=== PATIENT | male | born 1960 | race Caucasian/White ===

== ENCOUNTER 2019-04-05 12:10 | Emergency (ER) | payer BC, SELFPAY ==
[2019-04-05 12:16] VITALS: BP 145/71; PULSE 53; RESP 16; TEMP 36.8; O2SAT 100
--- NOTE | 2019-04-05 12:21 | ED.SKABFB ---
HPI - Skin/Abscess/Foreign Bdy General Chief complaint: Skin/Abscess/Foreign Body Stated complaint: lump Time Seen by Provider: 04/05/19 12:22 Source: patient Mode of arrival: ambulatory Limitations: no limitations History of Present Illness HPI narrative: Matheus Shahid is a 58 yo male with no PMH with complaints of L lower abd protrusion that he noticed 2 days ago- no pain or tenderness Denies any heavy lifting-does row, walk on treadmill Related Data Home Medications Medication Instructions Recorded Confirmed No Home Medications 04/05/19 04/05/19 Allergies Allergy/AdvReac Type Severity Reaction Status Date / Time No Known Allergies Allergy Unverified 08/05/17 18:53 Review of Systems Review of Systems: Narrative: CONSTITUTIONAL: Denies fever, chills, sweats. EYES: Denies visual changes, redness, discharge. ENT: Denies rhinorrhea, congestion, sore throat, otalgia. CARDIOVASCULAR: Denies chest pain, palpitations, edema. RESPIRATORY: Denies dyspnea, wheezing, cough GASTROINTESTINAL: Denies abdominal pain, nausea, vomiting, diarrhea. Has small protrusion left inguinal area GENITOURINARY: Denies dysuria, hematuria, abnormal discharge SKIN: Denies rash or itching. MUSCULOSKELETAL: Denies acute back pain, joint pain, or myalgia. NEUROLOGIC: Denies numbness, or focal weakness. PSYCHIATRIC: Denies anxiety or depression. [facility] Family History Family History Other Family history of malignant neoplasm Social History Social History Smoking status: Never smoker Alcohol intake: current Comments At time of signature, I agree with nursing past medical, surgical, social and family history. There is no relevant family history pertinent to the presenting complaint. Exam Narrative: Exam Narrative: GENERAL: This is a well-nourished, well-developed patient, in no apparent distress. HEAD: normocephalic, atraumatic. EYES:Sclera clear/white. Vision is grossly intact. EARS: External ears normal, Hearing grossly intact. NOSE: External nose normal with no obvious nasal discharge, nares without redness, no rhinorrhea. THROAT: Mucous membranes moist, NECK: Neck supple, non-tender without lymphadenopathy, masses or thyromegaly. CARDIOVASCULAR: Regular rate and rhythm without murmurs, gallops, or rubs. RESPIRATORY: Clear to auscultation. Breath sounds equal bilaterally. No wheezes, rales, or rhonchi. GASTROINTESTINAL: Abdomen soft, non-tender, nondistended. Bowel sounds are active. Small 3x4 soft o in L upper inguinal area. No tenderness, SKIN: warm, intact with no suspicious lesions or rash, good texture and turgor. NEURO: awake, alert, and oriented to person, place and time. There were no obvious focal neurologic abnormalities. Steady gait EXTREMITIES: Normal range of motion. No edema. BACK: Nontender without deformity Course Course Emergency Course: Referral to primary care and general surgeons for assessment of left inguinal hernia Vital Signs Vital signs: Vital Signs Temperature 98.2 F 04/05/19 12:16 Pulse Rate 53 L 04/05/19 12:16 Respiratory Rate 16 04/05/19 12:16 Blood Pressure 145/71 H 04/05/19 12:16 Pulse Oximetry 100 04/05/19 12:16 Temperature 98.2 F 04/05/19 12:16 Pulse Rate 53 L 04/05/19 12:16 Respiratory Rate 16 04/05/19 12:16 Blood Pressure 145/71 H 04/05/19 12:16 Pulse Oximetry 100 04/05/19 12:16 MDM - Skin/Abscess/Foreign Bdy Differential Diagnosis Differential diagnosis: Likely other (Inguinal hernia versus mass ) Discharge Plan Discharge Clinical Impression: Hernia, inguinal, left Patient Disposition: Home, Self-Care Condition: Stable Instructions: Antibiotic Form, Inguinal Hernia (ED) Prescriptions: No Action No Home Medications RF: 0 Follow-up/Referrals: UNKNOWN,DOCTOR [Primary Care Provider] - Time of Dis
== END 2019-04-05 12:42 | disposition home or self-care (01) ==
PROVIDERS: Emergency Provider Nurse Practitioner
DX: K40.90 Unilateral inguinal hernia, without obstruction or gangrene, not specified as recurrent (principal)
CPT/HCPCS: 99211; G0463

== ENCOUNTER 2019-04-06 08:52 | Inpatient (IN) | payer BC, SELFPAY ==
[2019-04-06] VITALS (12 sets, daily range): BP systolic 136–193; BP diastolic 20–92; PULSE 51–92; RESP 12–21; TEMP 36.3–36.9; O2SAT 94–100; BMI 29.7
--- NOTE | 2019-04-06 | ECG_ITS ---
Measurements Intervals [place] Rate: 81 P: 3 IN: 140 QRS: -9 QRSD: 98 T: 21 QT: 370 QTc: 430 Interpretive Statements SINUS RHYTHM VENTRICULAR BIGEMINY INCOMPLETE RIGHT BUNDLE BRANCH BLOCK ABNORMAL ECG Electronically Signed On 04-08-2019 10:50:16 [employer] by Humberto Salazar D.O.
--- NOTE | ~2019-04-06 | MR_ITS ---
EXAMINATION: MR brain/brain stem wo/w con DATE: 04/06/2019 14:17 INDICATION: Stroke descending with right-sided facial droop and difficulty speaking TECHNIQUE: Magnetic resonance imaging (MRI) of the brain and brainstem was performed without and with 20 mL Multihance intravenous contrast. Sequences included sagittal and axial T1-weighted SE, axial d iffusion-weighted FS SE, axial T2*-weighted GRE, axial T2-weighted FLAIR, and axial T2-weighted FSE. Postcontrast axial and coronal T1-weighted SE was obtained. Apparent diffusion coefficient (ADC) maps were created. COMPARISON: Head CT and CT angiogram dated 04/06/2019 FINDINGS: There is a region of restricted diffusion with subtle associated increased T2 signal corresponding to the region of previously noted cytotoxic edema in the right frontal lobe involving the anterior/supe rior side of the sylvian fissure and insula consistent with acute infarct. There is an additional sma ll acute infarcts with restricted diffusion along a gyrus of the more anterior left frontal lobe whic h is essentially indiscernible on the CT images. No intracranial hemorrhage or abnormal intracranial mass lesion. There are no intraparenchymal signal abnormalities seen on the other pulse sequences. Th e ventricles are symmetric and normal in size. There are no abnormal extra-axial fluid collections. F low voids are seen in the mid to larger cerebral arteries on the T2-weighted sequences consistent wit h their expected patency. Visualized orbits and soft tissues are unremarkable. There are no areas of abnormal enhancement on the post contrast images. IMPRESSION: 1. Acute infarcts in the left frontal lobe the smaller lung and anterior gyrus and the larger involvi ng the anterosuperior aspect of the sylvian fissure and insula consistent with likely fibrotic emboli in the left middle cerebral artery vascular distribution. Reviewed, dictated and finalized at location A. E CUTTER IMPRESSION: 1. Acute infarcts in the left frontal lobe the smaller lung and anterior gyrus and the larger involving the anterosuperior aspect of the sylvian fissure and i nsula consistent with likely fibrotic emboli in the left middle cerebral artery vascular distribution.
--- NOTE | ~2019-04-06 | CT_ITS ---
EXAMINATION: CT brain wo con DATE: 04/06/2019 09:01 INDICATION: Possible stroke with slurred speech and right-sided facial droop TECHNIQUE: Computed tomography (CT) of the head was performed without intravenous contrast. Sagittal and coronal reconstructions were performed. The mA was adjusted according to patient size. Iterative reconstruction technique was employed. The dose-length product was 681.00 mGy-cm. COMPARISON: None FINDINGS: Region of cytotoxic edema with moderately decreased attenuation loss of garcia-white matter differentia tion in the left frontal lobe along the anterior sylvian fissure and anterior insula. No acute intrac ranial hemorrhage or abnormal extra axial fluid collection. Ventricles are normal and symmetric. No m ass/mass effect. The orbits, paranasal sinuses and mastoid air cells are normal. IMPRESSION: 1. Left frontal lobe acute infarct. No intracranial hemorrhage. Dr. Zhang discussed these findings with MIRELLA Hernandes at 9:03 AM. Reviewed, dictated and finalized at location A. RNAL CONTROL CONSULTANT IMPRESSION: 1. Left frontal lobe acute infarct. No intracranial hemorrhage. Dr. Zhang di scussed these findings with MIRELLA Hernandes at 9:03 AM.
--- NOTE | ~2019-04-06 | XR_ITS ---
EXAMINATION: XR chest 1V DATE: 04/06/2019 09:03 INDICATION: Weakness and memory loss TECHNIQUE: frontal view of the chest was obtained. COMPARISON: None FINDINGS: Small calcified nodule at the lateral left lower lung zone consistent with old granulomatous disease. No other airspace opacities, pulmonary edema, pleural effusion or pneumothorax. The cardiomediastina l silhouette is normal. Visualized bones and soft tissues are unremarkable. IMPRESSION: 1. No acute cardiopulmonary disease. Reviewed, dictated and finalized at location A. [place] ACCOUNT EXECUTIVE
--- NOTE | ~2019-04-06 | CT_ITS ---
EXAMINATION: CTA BRAIN/CAROTID DATE: 04/06/2019 09:45 INDICATION: Stroke with slurred speech and right-sided facial droop TECHNIQUE: Computed tomographic angiography (CTA) of the head and neck was performed with 100 mL Omni paque-350 intravenous contrast. Multiplanar reconstructions and maximum intensity projection 3D-recon structions of the carotid arteries and of the intracranial arteries were created by the technologist on a separate workstation. Precontrast CT of the head was also obtained. Automated exposure control and iterative reconstruction technique were employed.The dose-length product was 1190.05 mGy-cm. COMPARISON: Head CT dated 04/06/2019 FINDINGS: Carotid arteries: There is small amount of atherosclerotic plaque with 0% stenosis of the right carotid bulb relative t o normal distal artery lumen diameter (NASCET criteria). There is similar small amount of atheroscler otic plaque with 0% stenosis of the left carotid bulb relative to normal distal artery lumen diameter . Right vertebral artery is dominant. Cervical soft tissues are unremarkable. Respiratory motion at t he apices of the lungs which are otherwise clear. Moderate cervical spondylosis. Intracranial arteries There is no hemodynamically significant stenosis in the vertebral, basilar and internal carotid arter ies. Right vertebral artery is dominant. The basilar artery is relatively small throughout its course . Bilateral A1 and P1 segments are patent although the right P1 segment is also diminutive with major ity of flow appearing to arise from the right internal carotid artery via the right posterior commuti ng artery there also appears to be some contribution of flow to the left posterior cerebral artery vi a a smaller left posterior commuting artery. There is relative paucity of cortical enhancement and as sociated tiny cerebral vessels in the region of left frontal lobe infarct along the anterior margin o f the sylvian fissure however no definitive thrombosed vessel is identified to at least the third ord er branch of the left middle cerebral artery. Cerebral arterial arborization appears otherwise symmet tamika. No evident aneurysms or dissection. IMPRESSION: 1. 0% stenosis of the right carotid bulb relative to normal distal artery lumen diameter (NASCET crit eria). 2. 0% stenosis of the left carotid bulb relative to normal distal artery lumen diameter. 3. Decreased cortical enhancement and absence of associated tiny cerebral vessels in the region of th e left frontal lobe infarct along the anterior margin of the sylvian fissure but without a discrete t hrombosed vessel through at least the third order branch of the left middle cerebral artery. Reviewed, dictated and finalized at location A. SAGE INSTRUCTOR IMPRESSION: 1. 0% stenosis of the right carotid bulb relative to normal distal artery lumen diameter (NASCET criteria). 2. 0% stenosis of the left carotid bulb relative to normal distal artery lumen diameter. 3. Decreased cortical enhancement and absence of associated tiny cerebral vesse ls in the region of the left frontal lobe infarct along the anterior margin of the sylvian fissure but without a discrete thrombosed vessel through at least t he third order branch of the left middle cerebral artery.
--- NOTE | 2019-04-06 09:03 | ED.NEUROSD ---
HPI - Neuro Symptoms/Deficit General Chief Complaint: Suspected CVA Stated Complaint: code cva Time Seen by Provider: 04/06/19 08:55 Source: patient and RN notes reviewed Mode of arrival: EMS Limitations: no limitations History of Present Illness HPI Narrative: Pt is a 58 y/o male presenting to the ED via EMS c/o facial droop. Pt reports he woke up this morning not feeling right , stating he felt out of sorts and spilled water out of a cup. Pt states he was called by his son on FaceTime and his son noticed the pt experience a rt sided facial droop. Pt denies weakness, dizziness, CP, HAZEL, fever, or dysphagia. Pt states he felt fine yesterday, but notes he did go to an where he was diagnosed with a hernia. Pt also reports ataxia that states comes and goes. Onset (ago): unknown Location: right face (Droop) Associated symptoms: other (Ataxia) Related Data Home Medications Medication Instructions Recorded Confirmed No Home Medications 04/05/19 04/05/19 Allergies Allergy/AdvReac Type Severity Reaction Status Date / Time No Known Allergies Allergy Unverified 08/05/17 18:53 Review of Systems Review of Systems: All systems reviewed & are unremarkable except as noted in HPI and below Constitutional: Constitutional: Denies fever(s) ENT: Denies other (Dysphagia) Cardiovascular: Cardiovascular: Denies chest pain Neurologic: Denies dizziness, Denies headache(s), Denies weakness and Reports other (Rt sided facial droop; Ataxia) PMFSH Past Medical History Medical History Leg fracture Surgical History Surgical History H/O right knee surgery No significant past surgical history Family History Family History Other Family history of malignant neoplasm Social History Social History Smoking status: Never smoker Alcohol intake: current Drinks per week: 10 Substance use: never Gender identity (if verbalized by the patient): Male Spiritual care concerns: No Agree to blood products: Yes Exam Const: General: healthy appearing, no acute distress and alert Nutritional Appearance: well nourished HENMT: Mouth: Yes lip normal Eyes: Conjunctivae: conjunctivae normal Resp: Effort & Inspection: normal respiratory effort Auscultation: clear to auscultation bilaterally Cardio: Rate: regular rate Rhythm: regular rhythm Back/Spine/Pelvis: Other: Full ROM Skin: General skin exam: normal color Other: Warm; Dry Neuro: General: patient oriented x3 Cranial nerves: Yes Other cranial nerve findings present (Rt sided facial droop) Speech: Expressive aphasia present Extrem: General: full ROM Psych: Mental Status: mental status grossly normal Affect: normal affect Course Consultations Consultation #1: Discussed case with Hospitalist Dr. Bhandari. Accepted the pt for admission. Date: 04/06/19 Time: 10:42 Vital Signs Vital signs: Vital Signs Temperature 36.9 C 04/06/19 09:20 Pulse Rate 70 04/06/19 09:20 Respiratory Rate 18 04/06/19 09:20 Blood Pressure 193/70 H 04/06/19 09:20 Pulse Oximetry 100 04/06/19 09:20 Temperature 36.3 C L 04/06/19 14:00 Pulse Rate 53 L 04/06/19 14:00 Respiratory Rate 18 04/06/19 14:00 Blood Pressure 154/84 H 04/06/19 14:00 Pulse Oximetry 100 04/06/19 14:00 MDM - Neuro Symptoms/Deficit Differential Diagnosis Differential diagnosis: Likely subarachnoid hemorrhage, cerebrovascular accident and transient cerebral ischemia Medical Records Attestation: I reviewed the patient's medical records. Lab Data Attestation: I reviewed the patient's lab results. Result diagrams: 04/06/19 09:16 04/06/19 10:06 Labs: Lab Results 04/06/19 04/06/19 04/06/19 Range/Units 09:05 09:16 09:16 WBC 6.3 (4.5-10.0) K/mm3 RBC 4.79 (4.6-6.20) M
[2019-04-06 09:08] LABS: Glucose Point of Care 105 (65-105)
[2019-04-06] MEDS: ASPIRIN 81 MG CHEWABLE TABLET 324 MG PO (09:17)
[2019-04-06 09:23] LABS: Basophils Absolute Auto 0.1 K/mm3 (0.0-0.1); Basophils Percent Auto 1.1 % (0.2-1.2); Eosinophils Absolute Auto 0.3 K/mm3 (0-0.3); Eosinophils Percent Auto 4.4 % (0-4.4); Hematocrit 44.5 % (42.0-52.0); Hemoglobin 14.3 g/dL (14.0-18.0); Immature Granulocyte Absolute 0.01 K/mm3 (0.00-0.031); Immature Granulocyte Percent A 0.2 % (0-0.5); Lymphocytes Absolute Auto 1.57 K/mm3 (0.9-3.2); Lymphocytes Percent Auto 24.9 % (18.3-44.2); Mean Corpuscular HGB Conc 32.1 g/dl (32-36); Mean Corpuscular Hemoglobin 29.9 pg (26-34); Mean Corpuscular Volume 92.9 fl (80-100); Monocytes Absolute Auto 0.6 K/mm3 (0.1-0.6); Monocytes Percent Auto 10.1 % (2.6-8.5); Neutrophils Absolute Auto 3.7 K/mm3 (1.3-6.7); Neutrophils Percent Auto 59.3 % (45.5-73.1); Platelet Count Result 239 k/mm3 (150-375); Red Blood Count 4.79 M/mm3 (4.6-6.20); Red Cell Distribution Width 13.7 % (11.5-14.5); White Blood Count 6.3 K/mm3 (4.5-10.0)
--- NOTE | 2019-04-06 09:33 | PC.NURSE ---
PT TAKEN TO CT PER GANTRY RIGGER WITH MONITOR IN PLACE.
[2019-04-06 09:34] LABS: INR 0.9; Prothrombin Time 11.3 Seconds (11.1-14.7)
[2019-04-06 09:35] LABS: Partial Thromboplastin Time 23.7 SECONDS (22.3-36.8)
[2019-04-06 09:36] LABS: Blood Urea Nitrogen 35 mg/dL (8-26); Estimated Glomerular Filt Rate > 60
--- NOTE | 2019-04-06 09:43 | PC.NURSE ---
PT BACK FROM CT AT THIS TIME, PLACED ON MONITOR.
--- NOTE | 2019-04-06 10:04 | PC.NURSE ---
PT BLOODWORK UNRECEIVED BY LAB, CISCO LERMA AT BEDSIDE TO REDRAW AT THIS TIME.
[2019-04-06 10:22] LABS: Blood Urea Nitrogen 26 mg/dL (9-20); Calcium 9.3 mg/dL (8.4-10.2); Carbon Dioxide 23 mmol/L (22-30); Chloride 102 mmol/L (98-107); Estimated Glomerular Filt Rate > 60; Glucose 109 mg/dL (75-110); Potassium 4.2 mmol/L (3.4-5.0); Sodium 137 mmol/L (137-145)
[2019-04-06 10:34] LABS: Troponin I < 0.012 ng/mL (0.000-0.034)
--- NOTE | 2019-04-06 11:28 | PC.NURSE ---
Pt admitted from the ER,resting in bed without any complaints.Call light in reach.
--- NOTE | 2019-04-06 16:38 | PM.IMHP ---
H&P: HPI History of Present Illness Chief complaint: stroke Narrative: Matheus Shahid is a 58 year old male who came to the emergency room due to expressive aphasia. The patient stated that he woke up this morning and he did a few routine. He drink some water and fed the cats. He said he woke up later than usual and just felt kind of groggy but did not have any weakness anywhere. He had tried to talk because he was home alone. He did realize that he was unable to talk until his son called him. He picked up the phone and tried to answer it but could not talk. The patient did face time with his son who noticed the patient had right eye droop and right corner of his mouth drooping. The patient got another phone and dial 911 and the son explained what was going on to EMS. The patient was able to unlock the door and let EMS in. He is having some word searching now but can speak in full sentences at times. The patient's last known normal was last night before went to bed. He went to urgent care yesterday and was checked for left inguinal hernia. Neurology has been consulted. The patient was placed on an aspirin. Date of service is 04/06/2019 Review of Systems Review of Systems: Narrative: Patient has word searching and cannot always find the right word but performs hand motions and communicates otherwise. All systems reviewed & are unremarkable except as noted in HPI and below Constitutional: Constitutional: Reports as per HPI and Reports no additional constitutional complaints Comments: [place] tired today Eyes: Eyes: Reports as per HPI and Reports no additional eye complaints Comments: Drooping of right eye and the corner of right mouth ENT: Reports system reviewed and no additional complaints, except as documented and Reports Normal hearing present Cardiovascular: Cardiovascular: Reports no additional cardiovascular complaints Respiratory: Respiratory: Reports no additional respiratory complaints and Reports no additional respiratory complaints Gastrointestinal: Gastrointestinal: Reports as per HPI and Reports no additional gastrointestinal complaints Musculoskeletal: Musculoskeletal: Reports no additional musculoskeletal complaints Integumentary/Breasts: Skin/Breast: Reports system reviewed and no additional complaints, except as docu and Reports as per HPI Neurologic: Reports system reviewed and no additional complaints, except as documented, Reports as per HPI and Reports Normal hearing present Psychiatric: Psychiatric: Reports no additional psychiatric complaints and Reports as per HPI Endocrine: Endocrine: Reports no additional endocrine complaints Hematologic/Lymphatic: Hematologic/Lymphatic: Reports no additional hematologic/lymphatic complaints Allergic/Immunologic: Allergic/Immunologic: Reports no additional allergic/immunologic complaints PMFSH Past Medical History Medical History Leg fracture Surgical History Surgical History (Updated 04/06/19 @ 16:45 by Celia Soto NP) H/O right knee surgery Family History Family History (Updated 04/06/19 @ 16:48 by Celia Soto NP) Mother Cancer Father Motor vehicle accident Other Family history of malignant neoplasm Social History Social History (Updated 04/06/19 @ 16:50 by Celia Soto NP) Social History: The patient has 2 sons. His Miranda is his durable power commercial real estate attorney for [employer] knee which is to be a full code. 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 Nonsmoker and occasionally drinks a beer. Smoking status: Never smoker Alcohol intake: current Drinks per week: 10 Substance use: never Living arrangements: with family Occupation/Education: occupation Gender identity (if verbalized by the patient): Male Spiritual care concerns: No Agree to blood products: Yes Meds Home Medications and Allergies Home Medications Medication Instructions Record
--- NOTE | 2019-04-06 17:19 | ED.NEUROSD ---
HPI - Neuro Symptoms/Deficit General Chief Complaint: Suspected CVA Stated Complaint: code cva Time Seen by Provider: 04/06/19 08:55 Source: patient and RN notes reviewed Mode of arrival: EMS Limitations: no limitations History of Present Illness Location: right face (Droop) Related Data Home Medications Medication Instructions Recorded Confirmed No Home Medications 04/05/19 04/05/19 Allergies Allergy/AdvReac Type Severity Reaction Status Date / Time No Known Allergies Allergy Unverified 08/05/17 18:53 [facility] Past Medical History Medical History Leg fracture Surgical History Surgical History (Updated 04/06/19 @ 16:45 by Celia Soto NP) H/O right knee surgery Family History Family History (Updated 04/06/19 @ 16:48 by Celia Soto NP) Mother Cancer Father Motor vehicle accident Other Family history of malignant neoplasm Social History Social History (Updated 04/06/19 @ 16:50 by Celia Soto NP) Social History: The patient has 2 sons. His Miranda is his durable power deputy county attorney for healthcare knee which is to be a full code. 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 Nonsmoker and occasionally drinks a beer. Smoking status: Never smoker Alcohol intake: current Drinks per week: 10 Substance use: never Living arrangements: with family Occupation/Education: occupation Gender identity (if verbalized by the patient): Male Spiritual care concerns: No Agree to blood products: Yes Course Vital Signs Vital signs: Vital Signs Temperature 36.9 C 04/06/19 09:20 Pulse Rate 70 04/06/19 09:20 Respiratory Rate 18 04/06/19 09:20 Blood Pressure 193/70 H 04/06/19 09:20 Pulse Oximetry 100 04/06/19 09:20 Temperature 36.3 C L 04/06/19 14:00 Pulse Rate 53 L 04/06/19 14:00 Respiratory Rate 18 04/06/19 14:00 Blood Pressure 154/84 H 04/06/19 14:00 Pulse Oximetry 100 04/06/19 14:00 MDM - Neuro Symptoms/Deficit MDM Narrative Medical decision making narrative: He is outside of the window for TPA. Discussed case with Dr. Evangelista. Will admit for stroke work-up. Will allow permissive hypertension at this time. Differential Diagnosis Differential diagnosis: Likely subarachnoid hemorrhage, cerebrovascular accident and transient cerebral ischemia Medical Records Attestation: I reviewed the patient's medical records. Lab Data Attestation: I reviewed the patient's lab results. Result diagrams: 04/06/19 09:16 04/06/19 10:06 Labs: Lab Results 04/06/19 04/06/19 04/06/19 Range/Units 09:05 09:16 09:16 WBC 6.3 (4.5-10.0) K/mm3 RBC 4.79 (4.6-6.20) M/mm3 Hgb 14.3 (14.0-18.0) g/dL Hct 44.5 (42.0-52.0) % MCV 92.9 (80-100) fl MCH 29.9 (26-34) pg MCHC 32.1 (32-36) g/dl RDW 13.7 (11.5-14.5) % Plt Count 239 (150-375) k/mm3 MPV 11.0 H (7.4-10.4) fl Immature Gran % (Auto) 0.2 (0-0.5) % Neut % (Auto) 59.3 (45.5-73.1) % Lymph % (Auto) 24.9 (18.3-44.2) % [place] % (Auto) 10.1 H (2.6-8.5) % Eos % (Auto) 4.4 (0-4.4) % Baso % (Auto) 1.1 (0.2-1.2) % Lymph # (Auto) 1.57 (0.9-3.2) K/mm3 [place] # (Auto) 0.6 (0.1-0.6) K/mm3 Eos # (Auto) 0.3 (0-0.3) K/mm3 Baso # (Auto) 0.1 (0.0-0.1) K/mm3 Abs Immat Gran (auto) 0.01 (0.00-0.031) K/mm3 Absolute Neuts (auto) 3.7 (1.3-6.7) K/mm3 Absolute Nucleated RBC 0.0 (0.0-0.012) K/mm3 Nucleated RBC % 0.0 (0.0-0.2) % PT 11.3 (11.1-14.7) Seconds INR 0.9 APTT 23.7 (22.3-36.8) SECONDS Sodium (137-145) mmol/L Potassium (3.4-5.0) mmol/L Chloride (98-107) mmol/L Carbon Dioxide (22-30) mmol/L BUN (8-26) mg/dL Creatinine (0.8-1.5) mg/dL Estim Creat Clear Calc Estimated GFR (59 - ) Glucose (75-110) mg/dL POC Capillary Glucose 105 (65-105) mg/dl Calcium (8.4-10.2) mg/
--- NOTE | 2019-04-06 18:01 | WPDNEURCNPN ---
Assessment and Plan Assessment and plan (1) Acute ischemic stroke: Code(s): I63.9 - Cerebral infarction, unspecified Status: Acute Additional Plan I will add atorvastatin to his regimen check a lipid profile and also echocardiogram and some other laboratory data Consult date: 04/06/19 Time Seen: 17:35 HPI: Matheus Shahid is a 58 year old male right handed was admitted earlier this morning because of sudden onset of expressive aphasia and dropping of his right side of the face which clearly has improved in the past several hours the patient denies any headache nausea vomiting chest pain or shortness of breath He tells me that in the morning when he woke up he was unable to speak right and when he called his son and did the face time with 1 of them he noticed that his face was drooping and he was unable to communicate that is when he called the emergency room already EMS and was brought to the emergency room and the initial CT scan showed left frontal infarct confirmed by the brain MRI he also had a CTA performed which is unrevealing the patient is on aspirin initial blood pressure was elevated now it is relatively on the better side The patient never had any medical issues or problems to the best of his knowledge and never had any symptoms to suggest TIA or otherwise Review of Systems Constitutional: Constitutional: Reports no additional constitutional complaints Eyes: Eyes: Reports no additional eye complaints ENT: Reports system reviewed and no additional complaints, except as documented Cardiovascular: Cardiovascular: Reports no additional cardiovascular complaints Respiratory: Respiratory: Reports no additional respiratory complaints Gastrointestinal: Gastrointestinal: Reports no additional gastrointestinal complaints Genitourinary: Genitourinary: Reports no additional male genitourinary complaints Musculoskeletal: Musculoskeletal: Reports no additional musculoskeletal complaints Integumentary/Breasts: Skin/Breast: Reports system reviewed and no additional complaints, except as docu Neurologic: Reports system reviewed and no additional complaints, except as documented Psychiatric: Psychiatric: Reports no additional psychiatric complaints PMFSH Past Medical History Medical History Leg fracture Surgical History Surgical History H/O right knee surgery Family History Family History Mother Cancer Father Motor vehicle accident Other Family history of malignant neoplasm Social History Social History Social History: The patient has 2 sons. His Miranda is his durable power disability attorney for [employer] knee which is to be a full code. 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 Nonsmoker and occasionally drinks a beer. Smoking status: Never smoker Alcohol intake: current Drinks per week: 10 Substance use: never Living arrangements: with family Occupation/Education: occupation Gender identity (if verbalized by the patient): Male Spiritual care concerns: No Agree to blood products: Yes Meds Home Medications and Allergies Home Medications Medication Instructions Recorded Confirmed Type No Home Medications 04/05/19 04/05/19 History Allergies Allergy/AdvReac Type Severity Reaction Status Date / Time No Known Allergies Allergy Unverified 08/05/17 18:53 Vital Signs Vital Signs - 24 hr 04/06/19 09:20 04/06/19 10:05 04/06/19 10:35 Temperature 36.9 C Pulse Rate 75 58 L 55 L Respiratory Rate 12 16 15 Blood Pressure 139/92 H 136/83 152/92 H Pulse Oximetry 100 100 100 04/06/19 11:12 04/06/19 11:30 04/06/19 11:36 Temperature 36.3 C L Pulse Rate 63 61 63 Respiratory Rate 21 H 16 Blood Pressure 149/83 H 157/78 H Pulse Oximetry 98 100
[2019-04-06 18:35] LABS: Cholesterol 192 mg/dL (0-200); HDL Direct 84 mg/dL; Triglycerides 65 mg/dL (<150)
[2019-04-06 18:46] LABS: Erythrocyte Sedimentation Rate 7 mm/hr (0-20); LDL Cholesterol Direct 94 mg/dL
[2019-04-07] VITALS (9 sets, daily range): BP systolic 121–168; BP diastolic 66–95; PULSE 47–101; RESP 14–20; TEMP 36.1–37.6; O2SAT 20–98
--- NOTE | 2019-04-07 00:40 | ECG_ITS ---
Measurements Intervals [place] Rate: 88 P: [place]: 0 QRS: 3 QRSD: 103 T: 32 QT: 397 QTc: 481 Interpretive Statements ATRIAL FLUTTER/TACHYCARDIA INCOMPLETE RIGHT BUNDLE BRANCH BLOCK BASELINE WANDER- V4-V6 ABNORMAL ECG Electronically Signed On 04-08-2019 10:50:39 AGRICULTURAL SERVICE WORKER by Humberto Salazar D.O.
[2019-04-07 06:22] LABS: Basophils Absolute Auto 0.1 K/mm3 (0.0-0.1); Basophils Percent Auto 0.8 % (0.2-1.2); Eosinophils Absolute Auto 0.2 K/mm3 (0-0.3); Eosinophils Percent Auto 2.4 % (0-4.4); Hematocrit 42.9 % (42.0-52.0); Hemoglobin 14.4 g/dL (14.0-18.0); Immature Granulocyte Absolute 0.02 K/mm3 (0.00-0.031); Immature Granulocyte Percent A 0.3 % (0-0.5); Lymphocytes Absolute Auto 1.93 K/mm3 (0.9-3.2); Lymphocytes Percent Auto 24.8 % (18.3-44.2); Mean Corpuscular HGB Conc 33.6 g/dl (32-36); Mean Corpuscular Hemoglobin 30.3 pg (26-34); Mean Corpuscular Volume 90.1 fl (80-100); Mean Platelet Volume 10.6 fl (7.4-10.4); Monocytes Absolute Auto 0.8 K/mm3 (0.1-0.6); Neutrophils Absolute Auto 4.8 K/mm3 (1.3-6.7); Neutrophils Percent Auto 61.7 % (45.5-73.1); Platelet Count Result 203 k/mm3 (150-375); Red Blood Count 4.76 M/mm3 (4.6-6.20); Red Cell Distribution Width 13.8 % (11.5-14.5); White Blood Count 7.8 K/mm3 (4.5-10.0)
[2019-04-07 06:36] LABS: Alanine Aminotransferase 26 U/L (4-50); Alkaline Phosphatase 59 U/L (38-126); Aspartate Amino Transferase 28 U/L (17-59); Bilirubin,Total 0.6 mg/dL (0.2-1.3); Blood Urea Nitrogen 16 mg/dL (9-20); Calcium 9.2 mg/dL (8.4-10.2); Carbon Dioxide 27 mmol/L (22-30); Chloride 105 mmol/L (98-107); Estimated CRCL calculation 85 ml/min; Estimated Glomerular Filt Rate > 60; Glucose 96 mg/dL (75-110); Potassium 3.9 mmol/L (3.4-5.0); Sodium 139 mmol/L (137-145)
[2019-04-07] MEDS: ATORVASTATIN 40 MG TABLET PO (09:03)
[2019-04-07] MEDS: ASPIRIN 81 MG CHEWABLE TABLET PO (09:03)
--- NOTE | 2019-04-07 09:19 | PM.CNCAR ---
Assessment and Plan Additional Plan This is a 58-year-old gentleman who presents with appears to be a cardioembolic CVA. Neurological symptoms are much better than upon presentation yesterday. One S to presume this is cardioembolic event related to his atrial flutter. He is specifically unaware of his rhythm looking through the old records here at [facility] there has never been a previous ECG recorded on this patient so we have no information as to the duration of his arrhythmia. I will start beta-saba therapy at with low-dose metoprolol XL. Await the findings of echocardiogram Systemic anticoagulation with 1 of the NOAC drugs will be initiated when okayed by Neurology. We will not make an attempt at restoring sinus rhythm in this gentleman until we at least 4-6 weeks of systemic anticoagulation History of Present Illness History of Present Illness Consult date/time: Date of service: 04/07/19 09:19 Reason For Visit: stroke Narrative: This is a very pleasant 58-year-old man of seeing at the request of the hospitalist today because of atrial flutter. The patient has no previous history of cardiac problems in the past and really a paucity of general medical problems as well he has been enjoying very good health most of his life that he has been aware of. Yesterday he was at home and in the course of normal activities he was communicating with 1 of his sons on face time and he noticed apparently that he was unable to speak. His son noticed on face time that he had a facial droop and asked his father to call 911. He was transported here evaluated he has been found by MRI to have an acute frontoparietal CVA from what I see in the records and he has been placed on aspirin and Neurology consult was obtained. An echocardiogram has been ordered which of course has not yet been performed as it is Monday. In this setting I have been consulted to see him. He is not aware of the sense of his cardiac rhythm being irregular he notices no sense of palpitations he denies any chest pain orthopnea PND or edema he has not been having or any sense of decline in his exertional capabilities. 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 He is speaking fluently at this time he is having a little bit of difficulty choosing some words and offers no other complaints. Patient was visiting his son in eating his breakfast when I came in the room to see him. Review of Systems Constitutional: Constitutional: Reports no additional constitutional complaints Eyes: Eyes: Reports no additional eye complaints ENT: Reports system reviewed and no additional complaints, except as documented Cardiovascular: Cardiovascular: Reports no additional cardiovascular complaints Respiratory: Respiratory: Reports no additional respiratory complaints Gastrointestinal: Gastrointestinal: Reports no additional gastrointestinal complaints Genitourinary: Genitourinary: Reports no additional male genitourinary complaints Neurologic: Reports as per HPI and Reports Abnormal speech present Endocrine: Endocrine: Reports no additional endocrine complaints Hematologic/Lymphatic: Hematologic/Lymphatic: Reports no additional hematologic/lymphatic complaints PMFSH Past Medical History Medical History Leg fracture Surgical History Surgical History H/O right knee surgery Family History Family History Mother Cancer Father Motor vehicle accident Other Family history of malignant neoplasm Social History Social History Social History: The patient has 2 sons. His Miranda is his durable power special projects coordinator for [email or web address] knee which is to be a full code. 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 Nonsmoker and oc
--- NOTE | 2019-04-07 10:07 | PCSTNOTE ---
Bedside Swallow Evaluation This pt was seen for a bedside swallow evaluation following a CVA. He was given trials of thin liquid, extremely thick liquid, soft food, and solids. No signs or symptoms of aspiration were observed. It should be noted that silent aspiration cannot be ruled out at bedside. It is recommended for the pt to receive an oral diet of regular foods and thin liquids. The pt should eat independently. Position during intake should be upright. No skilled ST is warranted at this time for swallowing or aphasia.
[2019-04-07] MEDS: METOPROLOL SUCCINATE EXT REL 25 MG TABCR PO (10:10)
--- NOTE | 2019-04-07 11:16 | PM.IMPN ---
Progress Note: A&P Assessment and Plan (1) Acute ischemic stroke: Code(s): I63.9 - Cerebral infarction, unspecified Status: Acute Assessment and Plan: Patient woke up 04/06 feeling groggy , called his son who noticed he was having trouble speaking so he video-called his son who then noticed a right facial droop, EMS activated. He continues with some word searching today but overall symptoms are much improved. No issues with arm or leg weakness, ambulating at baseline. MRI brain shows acute infarcts in the left frontal lobe consistent with emboli in the left MCA distribution. Neurology consulted. Discussed case with Dr. Evangelista today who recommends holding off on anticoagulation for today and possibly tomorrow as well in the setting of acute CVA suspected cardioembolic source with atrial flutter. Dr Evangelista suggests the patient stay for 3 to 5 days to monitor for symptoms given his increased risk for subsequent CVA. Appreciate Dr. Evangelista's recommendations on when initiation of systemic anticoagulation with NOAC would be appropriate. He remains on 81mg ASA today. ST eval completed, no indications for diet change. (2) Atrial flutter: Qualifiers: Atrial flutter type: unspecified Qualified Code(s): I48.92 - Unspecified atrial flutter Code(s): I48.92 - Unspecified atrial flutter Status: Acute Assessment and Plan: Of unknown duration. Patient is asymptomatic with this. He has no previous history of arrhythmias. Echo pending. Cardiology consulted. Discussed case with Dr Canchola as well today and appreciate his input. Noted his recommendation for starting low-dose metoprolol at this time and ideally initiating anticoagulation with NOAC when neurology deems appropriate. Continue monitoring with cardiac telemetry. Subjective Date/time seen: 04/07/19 1000 Interval history: Mr. Shahid is a 58yo M admitted for acute CVA and new onset atrial flutter. He is sitting on the edge of the bed eating breakfast, visiting with his son at the bedside. He reports his speech is improved today but he does still continue with some word searching. He otherwise offers no complaints and denies chest pain, palpitations, or calf tenderness. He denies nausea, vomiting, or abdominal pain. He denies any arm or leg weakness. Reports ambulating at baseline. Review of Systems Review of Systems: Narrative: Twelve systems were reviewed with pertinent positives and negatives as per HPI. Exam Narrative: Exam Narrative: General: Male sitting on edge of bed eating breakfast in no acute distress. Neuro: Upper and lower extremity strength and director federal strength 5/5 equal bilaterally. Tongue is midline. No facial droop appreciated this morning. CN II-XII grossly intact as tested. Speech is mostly clear but he continues with some word searching and mispronouncing words this morning. HEENT: Normocephalic, EOMI, PERRL, oral mucosa moist. Cardiovascular: Rate is normal, rhythm is irregular. No murmur appreciated. Respiratory: Lungs clear to auscultation all davis. Non-labored breathing. Abdomen: Soft, non-tender, non-distended, bowel sounds present. Extremities: Peripheral pulses intact. No edema or erythema, no pain to palpation. Objective Data Vital Signs Vital Signs: Last Vital Signs Temp 97.3 F L 04/07/19 06:00 Pulse 101 H 04/07/19 08:00 Resp 20 04/07/19 08:00 BP 121/66 04/07/19 06:00 Pulse Ox 20 L 04/07/19 08:00 Intake/Output Intake/Output: Intake & Output 04/04/19 04/05/19 04/06/19 04/07/19 23:59 23:59 23:59 23:59 Intake Total 100 1040 Output Total 950 800 Balance -850 240 Meds/Results Medications: Active Medications Generic Name Dose Route Start Last Admin Trade Name Osielq PRN Reason Stop Dose Admin Aspirin 81 mg 04/07/19 08:00 04/07/19 09:03 Aspirin Chewable PO 81 mg DAILY@0800 ALEAH Administration Atorvastatin Calcium 40
--- NOTE | 2019-04-07 15:31 | WPDNEUROPN ---
Progress Note: A&P Assessment and Plan (1) Atrial flutter: Qualifiers: Atrial flutter type: unspecified Qualified Code(s): I48.92 - Unspecified atrial flutter Code(s): I48.92 - Unspecified atrial flutter Status: Acute (2) Acute ischemic stroke: Code(s): I63.9 - Cerebral infarction, unspecified Status: Acute Additional Plan discussed in detail both the patient and the son [id number] and the about starting anticoagulants the risk in the benefits were discussed and they were pretty much were aware of it since the stroke is relatively small and mild I would prefer to start the anticoagulant roughly about 3 days from the time of his stroke that will be day after tomorrow My preference would be to start him on Eliquis 10 milligram twice a day for 1 week and then 5 milligram twice a day and I will be happy to follow him as an outpatient again all their questions were answered and they were pretty much very comfortable with the questions and my answers I will not discharge him tomorrow and most likely will discharge him day after once we start him on anticoagulation Review of Systems Constitutional: Constitutional: Reports no additional constitutional complaints Eyes: Eyes: Reports no additional eye complaints ENT: Reports system reviewed and no additional complaints, except as documented Cardiovascular: Cardiovascular: Reports no additional cardiovascular complaints Respiratory: Respiratory: Reports no additional respiratory complaints Gastrointestinal: Gastrointestinal: Reports no additional gastrointestinal complaints Genitourinary: Genitourinary: Reports no additional male genitourinary complaints Musculoskeletal: Musculoskeletal: Reports no additional musculoskeletal complaints Integumentary/Breasts: Skin/Breast: Reports system reviewed and no additional complaints, except as docu Neurologic: Reports system reviewed and no additional complaints, except as documented Psychiatric: Psychiatric: Reports no additional psychiatric complaints Exam Const: General: comfortable and no acute distress HENMT: General nose exam: Normal nares present Mouth: Yes moist mucous membranes Eyes: General: appearance normal, both eyes and all related structures Neck: Neck: no JVD Resp: Effort & Inspection: normal respiratory effort Auscultation: clear to auscultation bilaterally Cardio: Other: irregularly irregular rhythm GI: Auscultation: normal bowel sounds Skin: General skin exam: normal color and no rashes or lesions noted Neuro: Other: patient is awake and alert well oriented in time place and person and his expressive aphasia has significantly improved to a point that he is able to have a decent conversation not only with his and the other family members including his son and [id number] but also with this examiner, he is able to count backwards he is able to count the months of the year starting January backward and able to perform simple calculations and there is no aphasic defect noted apart from expressive difficulty Extrem: General: normal to inspection Objective Data Vital Signs Vital Signs: Vital Signs - 24 hr 04/06/19 16:00 04/06/19 18:00 04/06/19 20:00 Temperature Pulse Rate 56 L 68 92 Respiratory Rate Blood Pressure Pulse Oximetry 04/06/19 22:00 04/07/19 00:00 04/07/19 04:00 Temperature 36.3 C L Pulse Rate 86 54 L 47 L Respiratory Rate 20 Blood Pressure 144/20 H Pulse Oximetry 94 04/07/19 06:00 04/07/19 08:00 04/07/19 12:00 Temperature 36.3 C L Pulse Rate 51 L 51 L 90 Respiratory Rate 20 Blood Pressure 121/66 Pulse Oximetry 20 L 20 L Intake/Output Intake/Output: Intake & Output 04/04/19 04/05/19 04/06/19 04/07/19 23:59 23:59 23:59 23:59 Intake Total 100 1040 Output Total 950 800 Balance -850 240 Meds/Results Medications: Active Medications Generic Name Dose Route Start Last Admin
[2019-04-08] VITALS (11 sets, daily range): BP systolic 128–130; BP diastolic 82–91; PULSE 72–163; RESP 16; TEMP 36.3–37; O2SAT 98–100
--- NOTE | 2019-04-08 | ECHO_ITS ---
Patient Info Name: Matheus Shahid Age: 58 years : 1960 Gender: Male Ht: 75 in Wt: 238 lbs BSA: 2.41 m2 HR: 93 bpm BP: 128 / 91 mmHg Heart Rhythm: Atrial Flutter Technical Quality: Good Exam Date: 04/08/2019 9:39 AM Exam Location: [facility] Card Pulmonary Patient Status: Inpatient Admit Date: 04/06/2019 Staff Ordering Physician: Celia Soto NP Web Graphic Designer: Petar Barker RDCS Attending Provider: Angie Gardner PA-C Referring Physician: Brittany COLE; Exam Type: CA echo doppler w bubble study Study Info Indications 436.0 - CVA Complete two-dimensional, color flow and Doppler transthoracic echocardiogram is performed with agitated saline. Contrast/Agitated Saline Contrast/Ag. Saline: Agitated Saline Amount: 18.00 ml Administered By: Ciera Alamo RN History/Risk Factors Stroke; Atrial Flutter. Summary 1. Left ventricular chamber dimension is normal. 2. Left ventricular systolic function is normal, estimated at 65-70%. 3. Left atrium is at the upper limits of normal in size. 4. No significant valvular abnormalities. Left Ventricle Left ventricular chamber dimension is normal. Left ventricular systolic function is normal, estimated at 65-70%. The left ventricular diastolic function is normal. Right Ventricle Right ventricular chamber dimension is normal. Left Atria Left atrial chamber dimension is mildly enlarged. Left atrium is at the upper limits of normal in size. Right Atria Right atrial chamber dimension is normal. Aortic Valve The aortic valve is trileaflet. Pulmonic Valve The pulmonic valve is not well visualized. Mitral Valve The mitral valve has normal leaflets. Tricuspid Valve The tricuspid valve leaflets are normal. Pericardium/Pleural The pericardium appears normal. Aorta The aortic root size at the sinus of Valsalva is normal. Left Ventricular Outflow Tract Name Value Normal LVOT 2D LVOT Diameter 2.2 cm LVOT Doppler LVOT Peak Gradient 3 mmHg LVOT Mean Gradient 1 mmHg LVOT VTI 15 cm LVOT VTI/AV VTI Ratio 0.9 LVOT Stroke Volume 55 ml LVOT CO 4.3 l/min LVOT CI 1.8 l/min/m2 Mitral Valve Name Value Normal MV Doppler MV Decel Kane 353 cm/s2 MV PHT 46 ms MV Area (PHT) 4.8 cm2 4.0-5.0 MV Diastolic Function MV E Peak Velocity 56 cm/s MV A Peak Velocity 1 cm/s MV E/A
[2019-04-08] MEDS: METOPROLOL SUCCINATE EXT REL 25 MG TABCR PO (09:47)
[2019-04-08] MEDS: ASPIRIN 81 MG CHEWABLE TABLET PO (09:47)
[2019-04-08] MEDS: ATORVASTATIN 40 MG TABLET PO (09:47)
--- NOTE | 2019-04-08 12:38 | PM.PNCARD ---
Progress Note: A&P Assessment and Plan (1) Acute ischemic stroke: Code(s): I63.9 - Cerebral infarction, unspecified Status: Acute Assessment and Plan: Presumably related to atrial flutter. Systemic anticoagulation with Xarelto 20 mg daily to be started as directed by Dr. Evangelista. Continue atorvastatin aspirin at this time. (2) Atrial flutter: Qualifiers: Atrial flutter type: unspecified Qualified Code(s): I48.92 - Unspecified atrial flutter Code(s): I48.92 - Unspecified atrial flutter Status: Acute Assessment and Plan: For the most part is heart rates are controlled. He does get tachycardic when up ambulating. Improves after metoprolol dosing. Will not adjust Metoprolol at this time to avoid hypotension. At least 4 weeks of anticoagulation prior to consideration for cardioversion per Dr. Canchola (3) PVC (premature ventricular contraction): Code(s): I49.3 - Ventricular premature depolarization Status: Acute Assessment and Plan: Frequent PVCs noted on telemetry. Check BMP. Echo pending. Additional Plan Plan discussed with Dr. Canchola [id number] 04/08/2019 Subjective Date/time seen: 04/08/19 12:38 Interval history: Follow-up for: Left hemispheric stroke, expressive aphasia improving, atrial fibrillation. Date of service: 04/08/2019 Subjective: Denies chest discomfort, shortness of breath, lightheadedness or palpitations. Words are coming easier. Review of Systems Constitutional: Constitutional: Denies weakness Eyes: Eyes: Denies blurry vision ENT: Reports Normal hearing present Cardiovascular: Cardiovascular: Denies chest pain, Denies pedal edema, Denies leg edema, Denies lightheadedness and Denies palpitations Respiratory: Respiratory: Denies cough, Denies dyspnea and Denies wheezing Gastrointestinal: Gastrointestinal: Denies abdominal pain, Denies nausea and Denies vomiting Genitourinary: Genitourinary: Denies hematuria Musculoskeletal: Musculoskeletal: Denies back pain and Denies neck pain Neurologic: Denies abnormal gait, Denies headache(s) and Denies numbness Comments: Word searching improving Psychiatric: Psychiatric: Denies anxiety Exam Const: General: comfortable and no acute distress HENMT: Mouth: Yes moist mucous membranes Eyes: Sclera: sclerae normal Pupils: Equal, round and reactive pupils present EOM: EOMs intact bilaterally Neck: Neck: supple Resp: Effort & Inspection: normal respiratory effort Auscultation: clear to auscultation bilaterally Cardio: Rhythm: abnormal rhythm Other: Irregularly irregular rhythm with no audible murmur or gallop GI: Auscultation: normal bowel sounds Skin: General skin exam: normal color Neuro: Cranial nerves: Yes Equal, round and reactive pupils present Cognition (Neuro): normal cognition Speech: Abnormal speech present Extrem: General: normal to inspection Psych: Appearance: grossly normal Mental Status: mental status grossly normal Affect: normal affect Attitude: cooperative Thought process: Normal thought process present Thought content: Yes Normal thought content present Insight: Good insight present (Psych) Judgement: Good judgement present (Psych) Objective Data Vital Signs Vital Signs: Vital Signs - 24 hr 04/07/19 14:00 04/07/19 16:00 04/07/19 20:00 Temperature 36.1 C L Pulse Rate 78 91 74 Respiratory Rate 14 Blood Pressure 168/88 H Pulse Oximetry 98 04/07/19 21:08 04/08/19 00:00 04/08/19 04:00 Temperature 37.6 C H Pulse Rate 77 76 73 Respiratory Rate 16 Blood Pressure 144/95 H Pulse Oximetry 97 04/08/19 05:50 04/08/19 08:00 04/08/19 09:47 Temperature 37.0 C Pulse Rate 76 163 H 97 Respiratory Rate 16 Blood Pressure 128/91 H Pulse Oximetry 100 04/08/19 12:00 04/08/19 12:05 Temperature Pulse Rate 78 83 Respiratory Rate
[2019-04-08 14:08] LABS: Blood Urea Nitrogen 17 mg/dL (9-20); Calcium 9.7 mg/dL (8.4-10.2); Carbon Dioxide 30 mmol/L (22-30); Chloride 98 mmol/L (98-107); Estimated CRCL calculation 78 ml/min; Estimated Glomerular Filt Rate > 60; Glucose 76 mg/dL (75-110); Sodium 140 mmol/L (137-145)
--- NOTE | 2019-04-08 14:31 | PM.IMPN ---
Progress Note: A&P Assessment and Plan (1) Acute ischemic stroke: Code(s): I63.9 - Cerebral infarction, unspecified Status: Acute Assessment and Plan: Patient presented 04/06 with right facial droop and aphasia with atrial flutter. Speech is much improved today. MRI brain shows acute infarcts in the left frontal lobe consistent with emboli in the left MCA distribution. Neurology consulted. Dr Evangelista recommended holding off on anticoagulation until possibly tomorrow. He recommends patient stay until anticoagulation is initiated to monitor for symptoms given his risk for subsequent CVA in this immediate period. Appreciate Dr. Evangelista's recommendations on when initiation of systemic anticoagulation with NOAC would be appropriate. He remains on 81mg ASA today. ST eval completed, no indications for diet change. May consider outpatient ST orders at discharge if needed. (2) Atrial flutter: Qualifiers: Atrial flutter type: unspecified Qualified Code(s): I48.92 - Unspecified atrial flutter Code(s): I48.92 - Unspecified atrial flutter Status: Acute Assessment and Plan: Of unknown duration. Patient is asymptomatic with this. He has no previous history of arrhythmias. Echo is unremarkable. Cardiology consulted - appreciate input. He was started on low-dose metoprolol at this time and ideally initiating anticoagulation with NOAC when neurology deems appropriate. Continue monitoring with cardiac telemetry. Subjective Date/time seen: 04/08/19 1215 Interval history: Mr. Shahid is a 58yo M admitted for acute CVA and new onset atrial flutter. He reports feeling well today and offers no complaints. His speech is improved today, less word searching noted today. He denies chest pain, palpitations, or calf tenderness. He has tolerated oral intake without nausea, vomiting, or abdominal pain. Denies any focal weakness. He is ambulating at baseline. Review of Systems Review of Systems: Narrative: Twelve systems were reviewed with pertinent positives and negatives as per HPI. Exam Narrative: Exam Narrative: General: Male resting sitting up in bed in no acute distress. Neuro: Alert and oriented. 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 Tongue is midline. No facial droop appreciated this morning. CN II-XII grossly intact as tested. Speech is clear, less word searching today than yesterday. HEENT: Normocephalic, EOMI, PERRL, oral mucosa moist. Cardiovascular: Rate is normal, rhythm is irregular. No murmur appreciated. Respiratory: Lungs clear to auscultation in all davis. Non-labored breathing. Abdomen: Soft, non-tender, non-distended, bowel sounds present. Extremities: Peripheral pulses intact. No edema or erythema, no pain to palpation. Objective Data Vital Signs Vital Signs: Last Vital Signs Temp 98.4 F 04/08/19 14:00 Pulse 95 04/08/19 16:00 Resp 16 04/08/19 14:00 BP 130/83 04/08/19 14:00 Pulse Ox 100 04/08/19 14:00 Intake/Output Intake/Output: Intake & Output 04/05/19 04/06/19 04/07/19 04/08/19 23:59 23:59 23:59 23:59 Intake Total 100 3270 460 Output Total 950 2800 1200 Balance -850 470 -740 Meds/Results Medications: Active Medications Generic Name Dose Route Start Last Admin Trade Name Freq PRN Reason Stop Dose Admin Acetaminophen 650 mg 04/07/19 11:17 Tylenol Tablet PO Q6H PRN Mild Pain (1-3) or Fever Aspirin 81 mg 04/07/19 08:00 04/08/19 09:47 Aspirin Chewable PO 81 mg DAILY@0800 ALEAH Administration Atorvastatin Calcium 40 mg 04/07/19 09:00 04/08/19 09:47 Lipitor PO 40 mg DAILY ALEAH Administration Metoprolol Succinate 25 mg 04/07/19 09:00 04/08/19 09:47 Toprol Xl PO 25 mg QAM ALEAH Administration Radiology Results: ITS Impressions Head CT 04/06/19 09:02 IMPRESSION: 1. Left frontal lobe acute infarct
[2019-04-09] VITALS: PULSE 64
[2019-04-09 04:00] VITALS: PULSE 64
[2019-04-09 05:58] VITALS: BP 126/83; PULSE 54; RESP 16; TEMP 35.7; O2SAT 98
[2019-04-09 06:06] LABS: Blood Urea Nitrogen 15 mg/dL (9-20); Calcium 9.4 mg/dL (8.4-10.2); Carbon Dioxide 28 mmol/L (22-30); Chloride 103 mmol/L (98-107); Estimated CRCL calculation 72 ml/min; Estimated Glomerular Filt Rate > 60; Glucose 94 mg/dL (75-110); Magnesium 2.1 mg/dL (1.6-2.3); Potassium 4.1 mmol/L (3.4-5.0); Sodium 138 mmol/L (137-145)
[2019-04-09 08:00] VITALS: PULSE 75
[2019-04-09 08:17] VITALS: PULSE 96
[2019-04-09] MEDS: ATORVASTATIN 40 MG TABLET PO (08:17)
[2019-04-09] MEDS: ASPIRIN 81 MG CHEWABLE TABLET PO (08:17)
[2019-04-09] MEDS: METOPROLOL SUCCINATE EXT REL 25 MG TABCR PO (08:17)
--- NOTE | 2019-04-09 09:58 | PC.NURSE ---
Spoke with Dr. Salcedo regarding patient's anticoagulation regimen. Per Dr. Salcedo start patient on 75mg Plavix PO daily for 4 weeks only. 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 Patient to follow-up with Dr. Salcedo in office in 4 weeks.
--- NOTE | 2019-04-09 10:00 | WPDNEUROPN ---
Progress Note: A&P Assessment and Plan (1) Acute ischemic stroke: Code(s): I63.9 - Cerebral infarction, unspecified Status: Acute (2) No active medical problems: Status: Acute (3) Atrial flutter: Qualifiers: Atrial flutter type: unspecified Qualified Code(s): I48.92 - Unspecified atrial flutter Code(s): I48.92 - Unspecified atrial flutter Status: Acute (4) PVC (premature ventricular contraction): Code(s): I49.3 - Ventricular premature depolarization Status: Acute Additional Plan stable will add plavix for 4 weeks and follow in the office Review of Systems Review of Systems: All systems reviewed & are unremarkable except as noted in HPI and below Exam Const: General: cooperative, healthy appearing, comfortable and no acute distress Nutritional Appearance: average body habitus Orientation/consciousness: oriented to person, oriented to place and oriented to time Limitations: no limitations HENMT: Head: normocephalic Eyes: General: appearance normal, both eyes and all related structures Neck: Neck: full ROM and no lymphadenopathy Resp: Effort & Inspection: able to speak in complete sentences Cardio: Jugular venous distension: no JVD Rate: regular rate Rhythm: regular rhythm GI: Auscultation: normal bowel sounds Skin: General skin exam: no rashes or lesions noted Neuro: General: patient oriented x3 and moves all extremities Cranial nerves: Yes CN's II-XII intact bilaterally Coordination: [id number] test normal Romberg Test: Negative Objective Data Vital Signs Vital Signs: Vital Signs - 24 hr 04/08/19 12:00 04/08/19 12:05 04/08/19 14:00 Temperature 36.9 C Pulse Rate 78 83 84 Respiratory Rate 16 Blood Pressure 130/83 Pulse Oximetry 100 04/08/19 16:00 04/08/19 20:00 04/08/19 21:51 Temperature 36.3 C L Pulse Rate 95 82 72 Respiratory Rate 16 Blood Pressure 129/82 Pulse Oximetry 98 04/09/19 00:00 04/09/19 04:00 04/09/19 05:58 Temperature 35.7 C L Pulse Rate 64 64 54 L Respiratory Rate 16 Blood Pressure 126/83 Pulse Oximetry 98 04/09/19 08:17 Temperature Pulse Rate 96 Respiratory Rate Blood Pressure Pulse Oximetry Intake/Output Intake/Output: Intake & Output 04/06/19 04/07/19 04/08/19 04/09/19 23:59 23:59 23:59 23:59 Intake Total 100 3270 3390 480 Output Total 950 2800 3200 1100 Balance -850 470 190 -620 Meds/Results Medications: Active Medications Generic Name Dose Route Start Last Admin Trade Name Freq PRN Reason Stop Dose Admin Acetaminophen 650 mg 04/07/19 11:17 Tylenol Tablet PO Q6H PRN Mild Pain (1-3) or Fever Aspirin 81 mg 04/07/19 08:00 04/09/19 08:17 Aspirin Chewable PO 81 mg DAILY@0800 [facility] Administration Atorvastatin Calcium 40 mg 04/07/19 09:00 04/09/19 08:17 Lipitor PO 40 mg DAILY [facility] Administration Clopidogrel Bisulfate 75 mg 04/10/19 09:00 Plavix PO QAM ALEAH Metoprolol Succinate 25 mg 04/07/19 09:00 04/09/19 08:17 Toprol Xl PO 25 mg QAM [facility] Administration Radiology Results: ITS Impressions Head CT 04/06/19 09:02 IMPRESSION: 1. Left frontal lobe acute infarct. No intracranial hemorrhage. Dr. Zhang discussed these findings with MIRELLA Hernandes at 9:03 AM. Chest X-Ray 04/06/19 09:07 IMPRESSION: 1. No acute cardiopulmonary disease. Head/Neck CTA 04/06/19 09:51 IMPRESSION: 1. 0% stenosis of the right carotid bulb relative to normal distal artery lumen diameter (NASCET criteria). 2. 0% stenosis of the left carotid bulb relative to normal distal artery lumen diameter. 3. Decreased cortical enhancement and absence of associated tiny cerebral vessels in the region of the left frontal lobe infarct along the anterior margin of the sylvian fissure but without a discrete thrombosed vessel through at least the third order branch of the left middle cerebral artery. Brain MRI 0
--- NOTE | 2019-04-09 13:56 | PM.DS ---
DS: Diagnosis Admitting Diagnosis Admitting Diagnosis: Cerebral infarction, unspecified Discharge Diagnosis (1) Acute ischemic stroke: Code(s): I63.9 - Cerebral infarction, unspecified Status: Acute (2) Atrial flutter: Qualifiers: Atrial flutter type: unspecified Qualified Code(s): I48.92 - Unspecified atrial flutter Code(s): I48.92 - Unspecified atrial flutter Status: Acute DS: Summary Hospital Course Reason for hospitalization: Aphasia Hospital Course: Patient is a 58-year-old male who presented emergency room for aphasia problems with word-finding. Vitals in the ER were temperature 36.9?, pulse 70, respiratory rate 18, blood pressure 193/70, pulse ox 100 on room air. CBC within normal limits. BMP within normal limits. Head CT showed left frontal lobe acute infarction with no intracranial hemorrhage. Chest x-ray showed no acute cardiopulmonary disease. He had an EKG which showed atrial flutter. Patient was admitted to the hospitalist service and seen by Neurology and Cardiology. The patient's symptoms improved during his stay. He underwent a brain MRI which revealed Acute infarcts in the left frontal lobe the smaller lung and anterior gyrus and the larger involving the anterosuperior aspect of the sylvian fissure and insula consistent with likely fibrotic emboli in the left middle cerebral artery vascular distribution. Because of the size of this, it was recommended that he started anticoagulation with Xarelto in 5 days. Cardiology started him on metoprolol. The patient had a flutter with tachycardia intermittently but the day of discharge she was back in normal sinus rhythm with bigeminy. Of the brain and neck showed 0% stenosis in either carotid. Valvular abnormalities and a normal EF. The patient did not have any further signs and symptoms of a stroke while hospitalized. He was asymptomatic with his atrial flutter even with rates in the 140s. Cardiology is going to see him in 4 weeks as they were planning to cardiovert him but now he is in normal sinus rhythm so they will follow-up with him with that. He was given a prescription for Xarelto to start 04/11/19. He is going to follow up with Dr. Salcedo as well. Speech therapy saw him did not recommend any further treatments. Overall the patient did well and him and his family were educated about the worrisome signs and symptoms come back to emergency room for and he was discharged in stable condition. -i spoke with Dr. Salcedo about tx plan after his note and he recommends xarelto 20mg in light of his cardiac arrhythmia. Discussed with Anahy Tanner NP as well who made him a follow up appointment. Status at Discharge Functional status at discharge: independent ambulation Overall status at discharge: patient is progressing back to baseline Time Spent with Patient Time attestation: Total time spent providing and/or coordinating discharge services:38 min Exam Narrative: Exam Narrative: General: Male resting sitting up in bed in no acute distress. Neuro: Alert and oriented x4. Upper and lower extremity strength and senior financial strength 5/5 equal bilaterally. Tongue is midline. No facial droop or other asymmetrical features. CN II-XII grossly intact as tested. Speech is clear but he did have some word searching. HEENT: Normocephalic, EOMI, PERRL, oral mucosa moist. Cardiovascular: Regular rate and rhythm on my exam. Telemetry showed that he went to normal sinus rhythm with occasional bigeminy. Earlier in the day he did have some RVR. no murmur appreciated. Respiratory: Lungs clear to auscultation in all davis. Non-labored breathing. Abdomen: Soft, non-tender, non-distended, bowel sounds present. Extremities: Peripheral pulses intact. No edema or erythema, no pain to palpation. DS: Data Data Completed and Pending Labs on day of discharge: Labs from last 24 hours 04/09/19 04/08/19 05:18 13:33 Sodium 138 140 Potassium 4.1 4.0 Ch
[2019-04-09 14:00] VITALS: BP 113/75; PULSE 65; RESP 16; TEMP 36.1; O2SAT 97
--- NOTE | 2019-04-09 14:41 | ECG_ITS ---
Measurements Intervals [place] Rate: 64 P: 23 DC: 149 QRS: -1 QRSD: 89 T: 6 QT: 415 QTc: 431 Interpretive Statements SINUS RHYTHM INCOMPLETE RIGHT BUNDLE BRANCH BLOCK BORDERLINE T WAVE ABNORMALITY- INFERIOR LEADS BORDERLINE ECG Electronically Signed On 04-09-2019 15:08:07 TRAIN DIRECTOR by Humberto Salazar D.O.
--- NOTE | 2019-04-09 14:57 | PM.PNCARD ---
Progress Note: A&P Assessment and Plan (1) Acute ischemic stroke: Code(s): I63.9 - Cerebral infarction, unspecified Status: Acute Assessment and Plan: Presumably related to atrial flutter. Systemic anticoagulation with Xarelto 20 mg daily to be started on , April 11, 2019. Agree with recommendations by the hospitalist due to size of infarct as recommended in the past by [facility] Continue atorvastatin and aspirin at this time. Will stop aspirin when Xarelto was started. Dr. Salcedo has agreed with Xarelto. (2) Atrial flutter: Qualifiers: Atrial flutter type: unspecified Qualified Code(s): I48.92 - Unspecified atrial flutter Code(s): I48.92 - Unspecified atrial flutter Status: Acute Assessment and Plan: Converted to normal sinus rhythm 11:21 a.m. 04/09/2019. Continue beta-saba. Follow-up with Dr. Canchola in approximately 1 month (3) PVC (premature ventricular contraction): Code(s): I49.3 - Ventricular premature depolarization Status: Acute Assessment and Plan: Frequent PVCs noted on telemetry. Echo 04/08/2019:Left ventricular chamber dimension is normal. Left ventricular systolic function is normal, estimated at 65-70%. Left atrium is at the upper limits of normal in size. No significant valvular abnormalities. Additional Plan OK to discharge from a cardiac standpoint See discharge instructions for follow-up Plan discussed Dr. Sousa 1507 04/09/2019 Subjective Date/time seen: 04/09/19 14:57 Interval history: Follow-up for: Left hemispheric stroke, expressive aphasia improving, atrial flutter-converted to normal sinus rhythm at 1121 this morning Date of service: 04/09/2019 Subjective: No chest discomfort, shortness of breath, lightheadedness or palpitations. Word searching continues to improve Review of Systems Eyes: Eyes: Denies blurry vision ENT: Reports Normal hearing present, Denies headache(s) and Denies neck pain Cardiovascular: Cardiovascular: Denies chest pain, Denies pedal edema, Denies leg edema, Denies lightheadedness, Denies palpitations and Denies dyspnea Respiratory: Respiratory: Denies cough, Denies dyspnea and Denies wheezing Gastrointestinal: Gastrointestinal: Denies abdominal pain, Denies nausea and Denies vomiting Genitourinary: Genitourinary: Denies hematuria Musculoskeletal: Musculoskeletal: Denies abnormal gait, Denies back pain, Denies neck pain and Denies numbness Neurologic: Reports Normal hearing present, Reports Abnormal speech present (Improving), Denies abnormal gait, Denies headache(s), Denies numbness and Denies weakness Psychiatric: Psychiatric: Denies anxiety Endocrine: Endocrine: Denies palpitations Allergic/Immunologic: Allergic/Immunologic: Denies wheezing Exam Const: General: comfortable and no acute distress HENMT: Mouth: Yes moist mucous membranes Eyes: Sclera: sclerae normal Pupils: Equal, round and reactive pupils present EOM: EOMs intact bilaterally Neck: Neck: supple Resp: Effort & Inspection: normal respiratory effort Auscultation: clear to auscultation bilaterally Cardio: Rate: regular rate Rhythm: regular rhythm Peripheral pulses: Peripheral pulses 2+ throughout GI: Auscultation: normal bowel sounds Skin: General skin exam: normal color Neuro: Cranial nerves: Yes Equal, round and reactive pupils present and Yes Normal hearing present Cognition (Neuro): normal cognition Speech: Abnormal speech present Extrem: General: normal to inspection Psych: Appearance: grossly normal Mental Status: mental status grossly normal Affect: normal affect Attitude: cooperative Thought process: Normal thought process present Insight: Good insight present (Psych) Judgement: Good judgement present (Psych) Objective Data Vital Signs Vital Sign
== END 2019-04-09 16:18 | disposition home or self-care (01) | DRG 64 ==
LOC: ANHED 10:45 → ANH2MED 11:06
PROVIDERS: Family Medicine; Nurse Practitioner; Nurse Practitioner Adult Health; Physician Assistant; Psychiatry & Neurology Neurology; Admitting Provider Family Medicine; Emergency Provider Emergency Medicine; Visit Provider Physician Assistant
DX: I63.412 Cerebral infarction due to embolism of left middle cerebral artery (principal); G93.6 Cerebral edema; I48.92 Unspecified atrial flutter; R47.01 Aphasia; R29.810 Facial weakness; Z28.21 Immunization not carried out because of patient refusal
CPT/HCPCS: 36415; 70450; 70496; 70498; 70553; 71045; 80048; 80053; 80061; 82948; 83735; 84443; 84484; 85025; 85610; 85652; 85730; 86038; 86039; 92523; 92610; 93005; 93306; 96375; 99285; A9270; A9577; Q9967

== ENCOUNTER 2019-09-30 02:10 | Outpatient (CLI) | payer BC, SELFPAY ==
[2019-09-30 18:20] LABS: SARS-CoV-2 RNA PCR Negative
== END 2019-09-30 02:11 | disposition home or self-care (01) ==
LOC: ANHCOVIDDT 02:10
PROVIDERS: PCP Family Medicine; Visit Provider Specialist
DX: Z01.812 Encounter for preprocedural laboratory examination (principal); Z11.59 Encounter for screening for other viral diseases
CPT/HCPCS: 87635; C9803; U0003

== ENCOUNTER 2019-10-02 05:35 | Day surgery (SDC) | payer BC, SELFPAY ==
[2019-10-01 13:26] VITALS: BMI 28.7
[2019-10-02] VITALS (12 sets, daily range): BP systolic 121–161; BP diastolic 81–119; PULSE 40–77; RESP 10–18; TEMP 36.6–36.8; O2SAT 95–100
--- NOTE | 2019-10-02 07:00 | ECG_ITS ---
Measurements Intervals [place] Rate: 74 P: VT: 0 QRS: -6 QRSD: 101 T: 31 QT: 421 QTc: 468 Interpretive Statements ATRIAL FIBRILLATION FREQUENT VENTRICULAR PREMATURE COMPLEXES INCOMPLETE RIGHT BUNDLE BRANCH BLOCK BASELINE ARTIFACT- AVF ABNORMAL ECG Electronically Signed On 10-02-2019 7:19:35 CDT by Humberto Salazar D.O.
[2019-10-02 07:38] LABS: Anion Gap 7 mmol/L (8-16); Blood Urea Nitrogen 21 mg/dL (9-20); Calcium 9.2 mg/dL (8.4-10.2); Carbon Dioxide 26 mmol/L (22-30); Chloride 106 mmol/L (98-107); Estimated CRCL calculation 84 ml/min; Estimated Glomerular Filt Rate > 60; Glucose 104 mg/dL (75-110); Potassium 4.8 mmol/L (3.4-5.0); Sodium 139 mmol/L (137-145)
--- NOTE | 2019-10-02 08:49 | ECG_ITS ---
Measurements Intervals [place] Rate: 43 P: 15 SC: 151 QRS: 25 QRSD: 97 T: 43 QT: 530 QTc: 448 Interpretive Statements SINUS BRADYCARDIA BASELINE ARTIFACT- I, II, III, AVF, V1-V3 BORDERLINE ECG Electronically Signed On 10-02-2019 15:28:02 CDT by Humberto Salazar D.O.
--- NOTE | 2019-10-02 08:54 | WPDMODSED ---
Moderate Sedation Note-Pt Data Patient Data Diagnosis: Atrial fib /flutter history of CVA in March of 1999 Present Complaint: generalized fatigue Procedure to be performed/Plan: DC cardioversion Allergies Allergy/AdvReac Type Severity Reaction Status Date / Time No Known Allergies Allergy Unverified 08/05/17 18:53 Home Medications Medication Instructions Recorded Confirmed Type atorvastatin 40 mg tablet 40 mg PO DAILY #90 tablet 04/15/19 10/01/19 Rx omeprazole 40 mg capsule,delayed 40 mg PO DAILY #90 cap 04/15/19 10/01/19 Rx release rivaroxaban 20 mg tablet 20 mg PO DAILY #90 tablet 04/15/19 10/01/19 Rx sotalol 80 mg PO BID 10/01/19 10/01/19 History Current Medications: Active Medications Sodium Chloride (Normal Saline Iv) 1,000 mls @ 30 mls/hr IV CONT .Q24H ALEAH Sedation/Anesthesia: No previous sedation/anesthesia problems (including family history). [facility] Social History Social History (Updated 04/20/19 @ 09:47 by Ingrid Goodman MD) Social History: The patient has 2 sons. His Miranda is his durable power insurance attorney for healthcare , full code. 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 Nonsmoker and occasionally drinks a beer. Smoking status: Never smoker Second hand tobacco smoke exposure: No Alcohol intake: current Drinks per week: 6 Substance use: never Substance use type: does not use Living arrangements: with family Gender identity (if verbalized by the patient): Male Spiritual care concerns: No Agree to blood products: Yes Mod Sed Physical Exam Physical Exam Pre Procedural Exam: Normal: Appearance, Neck, Throat, Airway, Lungs, Heart Size, Heart Rate, Neuro Exam and Extremities and Variation: Heart Rhythm ( irregularly irregular) Hours since solid foods: 12 Hours since liquid intake: 12 Internal Medicine - PN: Obj Da Vital Signs Vital Signs: Vital Signs - 24 hr 10/02/19 07:20 10/02/19 08:30 10/02/19 08:45 Temperature 36.6 C Pulse Rate 65 70 77 Respiratory Rate 14 14 14 Blood Pressure 161/119 H 150/99 H 149/99 H Pulse Oximetry 98 97 100 10/02/19 08:50 Temperature Pulse Rate 45 L Respiratory Rate 17 Blood Pressure 133/93 H Pulse Oximetry 99 Meds/Results Medications: Active Medications Generic Name Dose Route Start Last Admin Trade Name Primo PRN Reason Stop Dose Admin Sodium Chloride 1,000 mls @ 30 mls/hr 10/02/19 06:05 Normal Saline Iv IV CONT .Q24H ALEAH Labs CBC & Chem 7: 10/02/19 07:14 Labs: Laboratory Results - last 24 hr 10/02/19 07:14 Sodium 139 Potassium 4.8 Chloride 106 Carbon Dioxide 26 Anion Gap 7 L BUN 21 H Creatinine 1.00 Estim Creat Clear Calc 84 Estimated GFR > 60 Glucose 104 Calcium 9.2 Magnesium 2.0 ASA Classification/Sedation ASA Classification/Sedation ASA Class: II Emergent: No Risks: Risks, benefits and alternatives explained and patient/family accepted plan for sedation. Patient re-evaluated immediately prior to sedation.
--- NOTE | 2019-10-02 08:56 | P.PCNCC_ITS ---
Cardiac Cath Procedure Note Date of procedure:: 10/02/19 Performing physician:: Dank Canchola MD Indication:: persistent atrial fib /flutter Brief clinical history:: 59-year-old man who was seen following a CVA in March of 1999. He was found to be in atrial flutter in an asymptomatic fashion. Since then he has been anticoagulated with Xarelto and there is no other history of cardiac disease. A echocardiography did not demonstrate any significant structural cardiac abnormalities. An attempt at restoring sinus rhythm electrically has been recommended for today. Procedure Procedure performed:: DC cardioversion Sedation/Medication given:: propofol 80 mg total dose in aliquots Estimated blood loss:: no blood loss Procedure note:: patient was placed in the supine position with defibrillator patches in the AP position. The defibrillator was synchronized at 200 joules. Following administration of sedation the patient was cardioverted x1 in a synchronized fashion restoring sinus bradycardia. Findings:: As above Conclusion:: successful uncomplicated DC cardioversion of atrial fibrillation / flutter to sinus bradycardia using 200 joules x1 shock. Dank Canchola MD [facility]
--- NOTE | 2019-10-02 10:25 | SUR.PHASEII ---
Pt. and spouse given discharge education on new dosing of sotalol and follow-up appointment. Pt. and spouse verbalize understanding. Pt. transported to vehicle via wheelchair to be driven home by spouse. Pt. denies lightheadedness, palpitations upon ambulating.
== END 2019-10-02 10:26 | disposition home or self-care (01) ==
PROVIDERS: PCP Family Medicine; Visit Provider Specialist
PROC: 5A2204Z Restoration of Cardiac Rhythm, Single (ICD-10-PCS; principal; 2019-10-02 08:30)
DX: I48.19 Other persistent atrial fibrillation (principal)
CPT/HCPCS: 36415; 80048; 83735; 92960; 93005; J2704; J7040

== ENCOUNTER 2020-03-12 15:24 | Outpatient (CLI) | payer BC, SELFPAY ==
--- NOTE | 2020-03-12 15:25 | ECG_ITS ---
Measurements Intervals [place] Rate: 64 P: 51 UT: 153 QRS: -17 QRSD: 99 T: 17 QT: 422 QTc: 436 Interpretive Statements SINUS RHYTHM CANNOT RULE OUT SEPTAL INFARCT, AGE INDETERMINATE ABNORMAL ECG Electronically Signed On 03-12-2020 15:57:09 [employer]ORATION SILVERSMITH by Humberto Salazar D.O.
[2020-03-12 15:56] LABS: Anion Gap 6 mmol/L (8-16); Blood Urea Nitrogen 20 mg/dL (9-20); Calcium 9.7 mg/dL (8.4-10.2); Carbon Dioxide 33 mmol/L (22-30); Chloride 100 mmol/L (98-107); Estimated Glomerular Filt Rate > 60; Glucose 67 mg/dL (75-110); Potassium 3.9 mmol/L (3.4-5.0); Sodium 139 mmol/L (137-145)
== END 2020-03-12 15:25 | disposition home or self-care (01) ==
LOC: ANHSURGERY 15:25
PROVIDERS: Anesthesiology; PCP Family Medicine; Visit Provider Surgery
DX: Z01.818 Encounter for other preprocedural examination (principal); K40.90 Unilateral inguinal hernia, without obstruction or gangrene, not specified as recurrent; I48.92 Unspecified atrial flutter; Z51.81 Encounter for therapeutic drug level monitoring; Z79.899 Other long term (current) drug therapy
CPT/HCPCS: 36415; 80048; 86850; 86900; 86901; 93005

== ENCOUNTER 2020-03-14 01:14 | Outpatient (CLI) | payer BC, SELFPAY ==
[2020-03-15 00:20] LABS: SARS-CoV-2 RNA PCR Negative
== END 2020-03-14 01:15 | disposition home or self-care (01) ==
LOC: ANHCOVIDDT 01:14
PROVIDERS: PCP Family Medicine; Visit Provider Surgery
DX: Z01.812 Encounter for preprocedural laboratory examination (principal); Z20.822 Contact with and (suspected) exposure to COVID-19
CPT/HCPCS: C9803; U0003; U0005

== ENCOUNTER 2020-03-18 00:54 | Day surgery (SDC) | payer BC, SELFPAY ==
[2020-03-11 14:55] VITALS: BMI 28.9
[2020-03-18] VITALS (9 sets, daily range): BP systolic 126–165; BP diastolic 73–86; PULSE 48–64; RESP 14–20; TEMP 36.4; O2SAT 99–100
[2020-03-18] MEDS: ACETAMINOPHEN 500 MG TABLET 1000 MG PO (13:11)
[2020-03-18] MEDS: LACTATED RINGERS 1,000 ML 30 ML IV CONT ×3 (13:11→16:53)
[2020-03-18] MEDS: KETOROLAC 15 MG/ML VIAL (*BKC) IV PUSH (13:12)
--- NOTE | 2020-03-18 13:50 | P.PNAN_ITS ---
Anes - Initial Pre Proc Eval Procedure: Operation Date: 03/18/20 14:30 Proposed Procedures p Laparosopic Left Inguinal Hernia Repair, With Mesh, Davinci Assisted - Jay Allan DO Date/Time: 03/18/20 13:50 Surgeon: Jay Allan DO Pre Op Diagnosis: Left Inguinal Hernia Patient Data Age: 59 Gender: M Height: 6 ft 3 in Weight: 103.4 kg Last Vital Signs Temp 97.6 F 03/18/20 12:39 Pulse 59 L 03/18/20 12:39 Resp 16 03/18/20 12:39 BP 165/86 H 03/18/20 12:39 Pulse Ox 100 03/18/20 12:39 Allergies Allergy/AdvReac Type Severity Reaction Status Date / Time No Known Allergies Allergy Verified 03/18/20 12:46 Home Medications Medication Instructions Recorded Confirmed Type sotalol 40 mg PO BID #0 tablet 10/02/19 03/18/20 Rx Xarelto 20 mg PO QPM 03/11/20 03/18/20 History amlodipine 5 mg PO QPM 03/11/20 03/18/20 History losartan-hydrochlorothiazide 2 tablet PO QAM 03/11/20 03/18/20 History omeprazole 40 mg PO QAM 03/11/20 03/18/20 History rosuvastatin 10 mg PO HS 03/11/20 03/18/20 History Patient hx anesthesia problems: none Family hx anesthesia problems: none PMFSH Past Medical History Medical History Acute ischemic stroke Atrial flutter Dyslipidemia Leg fracture PVC (premature ventricular contraction) Surgical History Surgical History H/O right knee surgery Family History Family History Mother Cancer Father Motor vehicle accident Other Family history of malignant neoplasm Social History Social History Social History: The patient has 2 sons. His Miranda is his durable power assistant district attorney for healthcare , full code. 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 Nonsmoker and occasionally drinks a beer. Smoking status: Never smoker Second hand tobacco smoke exposure: No Alcohol intake: current Drinks per week: 6 Substance use: never Substance use type: does not use Living arrangements: with family Additional living arrangements comments: Additional occupation/education comments: [employer] Gender identity (if verbalized by the patient): Male Spiritual care concerns: No Agree to blood products: Yes Anes - Eval Final PreProcedure Day of Procedure 03/18/20 13:50 Patient weight: overweight Heart: regular rate and rhythm Lungs: clear to auscultation Airway: Mallampati scale class III Neurological: alert and oriented Last oral intake: >/= 8 hours ASA classification: III Anesthetic plan: proceed Anesthesia type and monitoring: general ETT and standard monitoring Informed Consent: The patient's anesthetic plan and its attendant risks and benefits were discussed with the patient/family/POA. Questions were solicited and answers provided to the satisfaction of the patient/family/POA.
--- NOTE | 2020-03-18 14:05 | WPDHPUPDATE1 ---
History and Physical Update Update Date/Time: 03/18/20 14:05 History and Physical has been reviewed, including an updated exam of the patient. There are NO changes in the patient's condition. Risks, benefits, and alternatives have been discussed and questions answered. Patient agrees to proceed with procedure.
--- NOTE | 2020-03-18 14:34 | SUR.PREOP ---
1415 pt taken to bathroom to void.
[2020-03-18] MEDS: ceFAZolin 2 GM/D5W 50 ML 2 GM/50 ML BAG IVPB (14:44)
--- NOTE | 2020-03-18 15:17 | SUR.OPER ---
LEFT INGUINAL HERNIA MESH PROGRIP LOT [id number], EXP 2022-10-20.
[2020-03-18] MEDS: BUPIVACAINE HCL 0.5% PF 30 ML VIAL INFILTRATE (15:50)
--- NOTE | 2020-03-18 16:01 | PM.PROC ---
Procedure Note - Detailed Date of procedure: 03/18/20 Pre-op diagnosis: Left Inguinal Hernia Post-op diagnosis: same (Direct LIH) Procedure performed: Laparoscopic left inguinal hernia repair with Progrip mesh, da Ramón assisted Description of procedure: Procedure as well as risks, benefits, and alternatives were discussed with the patient. Written consent was obtained and placed in chart prior to procedure. Patient was brought back to surgical suite. He was placed supine on operating table. Time-out was done to confirm patient and procedure. He was then intubated by Anesthesia Department. His abdomen was prepped and draped in sterile fashion using chlorhexidine prep. 0.5% bupivacaine with epinephrine was infiltrated at each location for incision. An 8 mm incision was made in the left lateral abdomen, and a 5 mm Optiview trocar was advanced through the abdominal layers under direct visualization. Once inside the abdominal cavity, carbon dioxide insufflation was used to create a pneumoperitoneum. A camera was inserted and the abdominal cavity was inspected. The patient was placed in slight Trendelenburg position. An 8 millimeter incision was made on the right lateral abdomen and an 8 millimeter trocar was inserted under direct visualization. Another 8 millimeter incision was made just superior to the umbilicus and an 8 millimeter trocar was inserted under direct visualization. The 5 mm port was then removed and this was replaced with another 8 mm robotic port. The robotic arms were brought up to the patient's bedside and secured to the ports. The camera and instruments were inserted. I then moved over to the robotic console and took control of the camera and instruments. After careful inspection of the abdominal cavity, I began scoring the peritoneum along the left lower quadrant using scissors with electrocautery. The preperitoneal plane was entered and this was carefully dissected caudally along the inferior epigastric vessels. Careful dissection with scissors with electrocautery and blunt dissection was used to continue this dissection. I dissected far enough laterally to allow for mesh placement, and also dissected medially to identify the pubic arch and Reuben's ligament. The hernia sac was identified and carefully dissected posteriorly. The cord contents were also identified and the peritoneum was carefully dissected far enough posteriorly to allow for mesh placement. Once an adequate pocket was created, I then placed the mesh within the preperitoneal pocket and carefully unfolded it. The mesh was centered on the hernia defect with adequate overlap circumferentially. The inferior edge of the mesh was inspected to ensure that it was far enough away from the peritoneal edge. The mesh appeared in proper position overlying the entire myopectineal orifice. The peritoneum was then closed over the mesh using a 3-0 V-lock running absorbable suture. The robotic instruments were removed. The robotic arms were disengaged from the ports and moved away from the bedside. The patient was flattened out in bed, the ports were removed under direct visualization, and the pneumoperitoneum was released. The skin of the incisions was approximated using 4-0 Monocryl subcuticular suture, and Exofin glue was applied on top. The patient was awakened from anesthesia, extubated, and transferred to recovery. Implants: Progrip Mesh 10cm x 15cm Anesthesia: GETA and local (0.5% bupivicaine with epi) Surgeon: Jay Allan DO Estimated blood loss (mL): 5 Drains: No Packing: No Pathology: none sent Complications: No immediate complications Condition: stable Disposition: same day Findings: This is a 59-year-old man who presented with left groin pain and a bulge. He noticed the pain about a year ago and was found have a left inguinal hernia on physical exam. He was going to see a surgeon a year ago for this but he suffered a stroke and had to go through treatment f
== END 2020-03-18 18:17 | disposition home or self-care (01) ==
PROVIDERS: PCP Family Medicine; Visit Provider Surgery
PROC: 8E0Y4CZ Robotic Assisted Procedure of Lower Extremity, Percutaneous Endoscopic Approach (ICD-10-PCS; CPT 49650; principal; 2020-03-18 14:30)
DX: K40.90 Unilateral inguinal hernia, without obstruction or gangrene, not specified as recurrent (principal); I48.92 Unspecified atrial flutter; E78.5 Hyperlipidemia, unspecified; I49.3 Ventricular premature depolarization; Z79.01 Long term (current) use of anticoagulants; Z86.73 Personal history of transient ischemic attack (TIA), and cerebral infarction without residual deficits
CPT/HCPCS: 49650; S2900; 36415; 80048; 86850; 86900; 86901; 93005; A9270; C1781; C9803; J0330; J0690; J1100; J1885; J2250; J2405; J2704; J2710; J3010; J7120; U0003; U0005

== ENCOUNTER 2021-03-30 00:29 | Day surgery (SDC) | payer BC, SELFPAY ==
[2021-03-22 13:48] VITALS: BMI 26.7
[2021-03-30 07:20] VITALS: BMI 26.8
[2021-03-30] MEDS: LACTATED RINGERS 1,000 ML 150 ML IV CONT (07:36)
--- NOTE | 2021-03-30 07:46 | WPDANESEPPF ---
Anes - Initial Pre Proc Eval Procedure: Operation Date: 03/30/21 08:30 Proposed Procedures p Colonoscopy - Jadon Self MD Date/Time: 03/30/21 07:46 Surgeon: Jadon Slef MD Pre Op Diagnosis: melena, rectal bleeding Patient Data Age: 60 Gender: M Height: 1.91 m Weight: 97.3 kg Allergies Allergy/AdvReac Type Severity Reaction Status Date / Time No Known Allergies Allergy Verified 03/22/21 13:49 Home Medications Medication Instructions Recorded Confirmed Type rosuvastatin 10 mg tablet 10 mg PO HS #90 tablet 05/07/20 03/30/21 Rx metoprolol succinate 25 mg 25 mg PO DAILY 07/24/20 03/30/21 History tablet,extended release 24 hr rivaroxaban 20 mg tablet 20 mg PO QPM #90 tablet 08/10/20 03/30/21 Rx alprazolam 0.25 mg tablet 0.25 mg PO BID PRN #60 tablet 12/31/20 03/30/21 Rx losartan 50 mg-hydrochlorothiazide 2 tablet PO DAILY #180 tablet 02/15/21 03/30/21 Rx 12.5 mg tablet omeprazole 40 mg capsule,delayed 40 mg PO QAM #90 cap 02/16/21 03/30/21 Rx release Patient hx anesthesia problems: none Family hx anesthesia problems: none Results Review: All pre-operative results and documents have been reviewed as part of the pre-operative evaluation. [facility] Past Medical History Medical History Acute ischemic stroke Atrial flutter Dyslipidemia Leg fracture PAF (paroxysmal atrial fibrillation) PVC (premature ventricular contraction) Surgical History Surgical History H/O inguinal hernia repair 03/18/20 Laparoscopic left inguinal hernia repair with Progrip mesh, da Ramón assisted H/O right knee surgery Family History Family History Mother Cancer Father Motor vehicle accident Other Family history of malignant neoplasm Social History Social History (Updated 03/09/21 @ 13:58 by Aylin Singer) Social History: The patient has 2 sons. His Miranda is his durable power collections attorney for healthcare , full code. 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 Nonsmoker and occasionally drinks a beer. 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 Gender identity (if verbalized by the patient): Male Sexual Orientation (if Verbalized by the Patient): Straight or Heterosexual Spiritual care concerns: No Agree to blood products: Yes Anes - Eval Final PreProcedure Day of Procedure 03/30/21 07:46 Patient weight: overweight Heart: regular rate and rhythm Lungs: clear to auscultation Airway: Mallampati scale class II Neurological: alert and oriented Last oral intake: >/= 8 hours ASA classification: III Emergent: no Anesthetic plan: proceed Anesthesia type and monitoring: general GIVS and standard monitoring Results Review: All pre-operative results and documents have been reviewed as part of the pre-operative evaluation. Informed Consent: The patient's anesthetic plan and its attendant risks and benefits were discussed with the patient/family/POA. Questions were solicited and answers provided to the satisfaction of the patient/family/POA.
--- NOTE | 2021-03-30 07:57 | PM.HPGS ---
History of Present Illness History of Present Illness Consent: Risks, benefits, and alternatives have been discussed and questions answered. Patient agrees to proceed with procedure. Chief complaint: melena, rectal bleeding Narrative: Matheus Shahid is a 60 year old male with rectal bleeding that lasted 5 days, never had colonoscopy Review of Systems Constitutional: Constitutional: Denies headache(s) and Denies weakness Eyes: Eyes: Denies blurry vision ENT: Reports Normal hearing present, Denies headache(s) and Denies neck pain Cardiovascular: Cardiovascular: Denies chest pain and Denies dyspnea Respiratory: Respiratory: Denies dyspnea Gastrointestinal: Gastrointestinal: Reports no additional gastrointestinal complaints Genitourinary: Genitourinary: Denies dysuria Musculoskeletal: Musculoskeletal: Denies neck pain Integumentary/Breasts: Skin/Breast: Denies dry skin Neurologic: Reports Normal hearing present, Denies headache(s) and Denies weakness Psychiatric: Psychiatric: Denies anxiety Endocrine: Endocrine: Denies change in body appearance Hematologic/Lymphatic: Hematologic/Lymphatic: Denies easy bleeding Allergic/Immunologic: Allergic/Immunologic: Denies urticaria PMFSH Past Medical History Medical History Acute ischemic stroke Atrial flutter Dyslipidemia Leg fracture PAF (paroxysmal atrial fibrillation) PVC (premature ventricular contraction) Surgical History Surgical History H/O inguinal hernia repair 03/18/20 Laparoscopic left inguinal hernia repair with Progrip mesh, da Ramón assisted H/O right knee surgery Family History Family History Mother Cancer Father Motor vehicle accident Other Family history of malignant neoplasm Social History Social History (Updated 03/09/21 @ 13:58 by Aylin Singer) Social History: The patient has 2 sons. His Miranda is his durable power tax attorney for healthcare , full code. 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 Nonsmoker and occasionally drinks a beer. 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 Gender identity (if verbalized by the patient): Male Sexual Orientation (if Verbalized by the Patient): Straight or Heterosexual Spiritual care concerns: No Agree to blood products: Yes Meds Home Medications and Allergies Home Medications Medication Instructions Recorded Confirmed Type rosuvastatin 10 mg tablet 10 mg PO HS #90 tablet 05/07/20 03/30/21 Rx metoprolol succinate 25 mg 25 mg PO DAILY 07/24/20 03/30/21 History tablet,extended release 24 hr rivaroxaban 20 mg tablet 20 mg PO QPM #90 tablet 08/10/20 03/30/21 Rx alprazolam 0.25 mg tablet 0.25 mg PO BID PRN #60 tablet 12/31/20 03/30/21 Rx losartan 50 mg-hydrochlorothiazide 2 tablet PO DAILY #180 tablet 02/15/21 03/30/21 Rx 12.5 mg tablet omeprazole 40 mg capsule,delayed 40 mg PO QAM #90 cap 02/16/21 03/30/21 Rx release Allergies Allergy/AdvReac Type Severity Reaction Status Date / Time No Known Allergies Allergy Verified 03/22/21 13:49 Exam Const: General: comfortable and no acute distress HENMT: General nose exam: Normal nares present Eyes: General: appearance normal, both eyes and all related structures Neck: Neck: no JVD Resp: Auscultation: clear to auscultation bilaterally Cardio: Rate: regular rate Rhythm: regular rhythm GI: Inspection: non-distended GI Palp: Yes Soft to palpation Skin: General skin exam: normal color Neuro: General: gait normal Speech: normal speech
[2021-03-30 08:17] VITALS: BP 121/80; PULSE 58; RESP 15; O2SAT 99
[2021-03-30 08:27] VITALS: BP 117/78; PULSE 48; RESP 17; O2SAT 98
[2021-03-30 08:37] VITALS: BP 132/90; PULSE 51; RESP 15; O2SAT 99
== END 2021-03-30 09:10 | disposition home or self-care (01) ==
PROVIDERS: PCP Family Medicine; Visit Provider Internal Medicine Gastroenterology
PROC: 0DJD8ZZ Inspection of Lower Intestinal Tract, Via Natural or Artificial Opening Endoscopic (ICD-10-PCS; CPT 45378; principal; 2021-03-30 08:30)
DX: Z12.11 Encounter for screening for malignant neoplasm of colon (principal); K92.1 Melena; D12.3 Benign neoplasm of transverse colon; K57.30 Diverticulosis of large intestine without perforation or abscess without bleeding; K64.8 Other hemorrhoids; I48.92 Unspecified atrial flutter; E78.5 Hyperlipidemia, unspecified; I48.0 Paroxysmal atrial fibrillation; I49.3 Ventricular premature depolarization; Z79.01 Long term (current) use of anticoagulants; Z86.73 Personal history of transient ischemic attack (TIA), and cerebral infarction without residual deficits
CPT/HCPCS: 45385; 88305; J2704; J7120